=== PATIENT | male | born 1970 | race Caucasian/White ===

== ENCOUNTER 2018-04-25 07:37 | Emergency (ER) | payer OTHER ==
[~2018-04-25] VITALS: Ht 167.6 cm; Wt 116.1 kg
== END 2018-04-25 14:36 | disposition home or self-care (01) ==
LOC: ER 07:37
DX: S32.391A Other fracture of right ilium, initial encounter for closed fracture (principal); V19.9XXA Pedal cyclist (driver) (passenger) injured in unspecified traffic accident, initial encounter; Y93.89 Activity, other specified; Y92.89 Other specified places as the place of occurrence of the external cause; Y99.8 Other external cause status

== ENCOUNTER 2018-05-04 12:25 | Outpatient (CLI) | payer OTHER | END 2018-05-04 12:36 | disposition home or self-care (01) | LOC: RAD 501 12:25 | DX: S32.434A Nondisplaced fracture of anterior column [iliopubic] of right acetabulum, initial encounter for closed fracture (principal) ==

== ENCOUNTER 2018-05-12 10:32 | Outpatient (CLI) | payer OTHER | END 2018-05-12 10:51 | disposition home or self-care (01) | LOC: TOM 10:32 | DX: S32.434D Nondisplaced fracture of anterior column [iliopubic] of right acetabulum, subsequent encounter for fracture with routine healing (principal) ==

== ENCOUNTER → 2020-06-06 11:05 | Outpatient (CLI) | payer OTHER | END | disposition home or self-care (01) | LOC: LAB 11:05 | PROVIDERS: ATTEND Orthopaedic Surgery | DX: D64.89 Other specified anemias (principal); M85.88 Other specified disorders of bone density and structure, other site; E55.9 Vitamin D deficiency, unspecified; M10.9 Gout, unspecified ==